=== PATIENT | male | born 1985 | race American Indian/Alaskan Native ===

== ENCOUNTER 2021-08-26 06:16 | Emergency (ER) | payer SELFPAY ==
--- NOTE | 2021-08-26 06:21 | Emergency Department Report ---
ED ENT HPI - General Stated complaint: FACIAL SWELLING Time Seen by Provider: 08/26/21 06:18 - History of Present Illness Initial comments: Patient presented with a 2-day history of left facial pain and swelling. He had had some dental sensitivity and tenderness prior to this. He woke up this morning and his left face was more swollen. He came in for evaluation. He knows that he has poor dentition and bad teeth. He has been working with a dentist because of his right-sided teeth. He knows that he has a cracked tooth in the left upper maxillary area. He has no fevers or chills. There is no blurry vision or double vision but there is no cough or congestion. He denies trauma. Pain is constant and aching. It does not radiate or migrate. - Related Data Previous Rx's Medication Instructions Recorded Last Taken Type Ibuprofen [Motrin] 800 mg PO Q8HR PRN #30 tablet 08/26/21 Unknown Rx Penicillin V Potassium 500 mg PO 4XD #28 tab 08/26/21 Unknown Rx Allergies Allergy/AdvReac Type Severity Reaction Status Date / Time No Known Allergies Allergy Unverified 08/26/21 06:25 ED Dental HPI - General Stated complaint: FACIAL SWELLING Time Seen by Provider: 08/26/21 06:18 - Related Data Previous Rx's Medication Instructions Recorded Last Taken Type Ibuprofen [Motrin] 800 mg PO Q8HR PRN #30 tablet 08/26/21 Unknown Rx Penicillin V Potassium 500 mg PO 4XD #28 tab 08/26/21 Unknown Rx Allergies Allergy/AdvReac Type Severity Reaction Status Date / Time No Known Allergies Allergy Unverified 08/26/21 06:25 ED Review of Systems ROS: Stated complaint: FACIAL SWELLING Other details as noted in HPI Comment: All other systems reviewed and negative Constitutional: denies: fever Eyes: denies: eye pain ENT: as per HPI. denies: throat pain Respiratory: denies: cough Cardiovascular: denies: chest pain Endocrine: denies: unexplained weight loss Gastrointestinal: denies: abdominal pain Genitourinary: denies: dysuria Musculoskeletal: denies: back pain Skin: denies: rash Neurological: denies: headache Hematological/Lymphatic: denies: easy bruising ED Past Medical Hx - Past Medical History Previous Medical History?: No - Family History Family history: no significant - Medications Home Medications: Home Medications Medication Instructions Recorded Confirmed Last Taken Type Ibuprofen [Motrin] 800 mg PO Q8HR PRN #30 tablet 08/26/21 Unknown Rx Penicillin V Potassium 500 mg PO 4XD #28 tab 08/26/21 Unknown Rx ED Physical Exam - General Limitations: No Limitations, Other (Pulse ox noted and normal) General appearance: alert, in no apparent distress - Head Head exam: Present: atraumatic, other (Left maxillary edema with tenderness. There is no induration or fullness. There is no abscess formation noted.) - Eye Eye exam: Present: normal appearance, EOMI. Absent: scleral icterus - ENT ENT exam: Present: normal external ear exam, other (Poor dentition with extensive caries noted. There is dental loss in the left maxillary area with a broken tooth.) - Neck Neck exam: Present: normal inspection. Absent: meningismus - Respiratory Respiratory exam: Present: normal lung sounds bilaterally. Absent: respiratory distress - Cardiovascular Cardiovascular Exam: Present: normal rhythm, tachycardia - GI/Abdominal GI/Abdominal exam: Present: soft - Extremities Exam Extremities exam: Present: normal capillary refill - Back Exam Back exam: Present: full ROM - Neurological Exam Neurological exam: Present: alert, oriented X3, normal gait. Absent: motor sensory deficit - Psychiatric Psychiatric exam: Present: normal affect, normal mood - Skin Skin exam: Present: warm, dry ED Course Vital Signs 08/26/21 06:17 Temperature 98.3 F Pulse Rate 106 H Respiratory 18 Rate Blood Pressure 121/77 [Right] O2 Sat by Pulse 96 Oximetry - Reevaluation(s) Reevaluation #1: 08/26/21 06:46 Patient was discharged ED Medical Decision Making - Medical Decision Making Patient presented with apical alveolar abscess and buccal cellulitis related to dental caries. He does not appear to be septic or toxic. There is no discrete abscess that would be amenable to I&D. Patient was started on antibiotics and given analgesics. He was referred to a dentist. Critical Care Time: No Critical care attestation.: If time is entered above; I have spent that time in minutes in the direct care of this critically ill patient, excluding procedure time. ED Disposition Clinical Impression: Apical alveolar abscess, Cellulitis of buccal space of mouth Disposition: HOME / SELF CARE / HOMELESS Is pt being admited?: No Condition: Stable Instructions: Dental Abscess, Preventive Dental Care, Adult Additional Instructions: SEE A DENTIST. HAVE A SOFT DIET. TAKE THE ANTIBIOTICS. Prescriptions: Ibuprofen [Motrin] 800 mg PO Q8HR PRN #30 tablet PRN Reason: Pain , Severe (7-10) Penicillin V Potassium 500 mg PO 4XD #28 tab
[2021-08-26 06:22] VITALS: BP 121/77
== END 2021-08-26 06:49 | disposition home or self-care (01) ==
LOC: ED 06:16
DX: K04.7 Periapical abscess without sinus (principal); K12.2 Cellulitis and abscess of mouth
CPT/HCPCS: 99282